=== PATIENT | female | born 1975 | race Caucasian/White ===

== ENCOUNTER 2018-06-30 16:35 | Inpatient (IN) | payer MEDICAID ==
[~2018-06-30] VITALS: Ht 154.9 cm; Wt 60.4 kg
[~2018-06-30 16:35] MED LIST: ALD250 PO; INSN SC; INSR SC; SLOFE PO
[2018-06-30 17:40] LABS: BASOPHIL % 0.5 % (0-2); PLATELET COUNT 297 x10^3mcL (130-400)
[2018-06-30 17:46] LABS: RED CELL DISTRIBUTION WIDTH 14.6 % (11.5-14.5)
[2018-06-30 18:05] LABS: ALKALINE PHOSPHATASE 122 U/L (46-116); ALT/SGPT 33 U/L (14-59); AMYLASE 83 U/L (25-115); AST/SGOT 29 U/L (15-37); BILIRUBIN TOTAL 0.1 mg/dL (0.20-1.00); CALCIUM 8.4 mg/dL (8.5-10.1); CARBON DIOXIDE 27.4 mmol/L (21-32); CHLORIDE SERUM 94 mmol/L (98-107); CHOLESTEROL 140 mg/dL (<200); CREATININE SERUM 0.8 mg/dL (0.6-1.0); GFR1 > 60 mL/min; LIPASE 692 IU/L (73-393); POTASSIUM SERUM 4.1 mmol/L (3.5-5.1); SODIUM SERUM 127 mmol/L (136-145); T4(THYROXINE) 6.2 ug/dL (4.7-13.3); TOTAL PROTEIN, SERUM 6.9 g/dL (6.4-8.2)
[2018-06-30 18:07] LABS: ALBUMIN 2.7 g/dL (3.4-5.0); HDL CHOLESTEROL 31 mg/dL (40-60)
[2018-06-30 18:09] LABS: GLUCOSE SERUM 618 mg/dL (74-106)
[2018-06-30 18:26] LABS: UA SPECIFIC GRAVITY <=1.005 (1.005-1.035); microscopic required? YES; urine erythrocyte TRACE (NEGATIVE)
[2018-06-30 18:35] LABS: AMPHETAMINE QUAL UR NONE DETECTED (See below)
[2018-06-30 20:34] LABS: PHOSPHOROUS 3.8 mg/dL (2.5-4.9)
[2018-06-30 20:37] VITALS: BP 121/76
[2018-06-30 20:40] LABS: CHOLESTEROL/HDL RATIO 4.3
[2018-06-30 20:41] VITALS: Ht 154.9 cm; Wt 60.4 kg
[2018-06-30] MEDS ORDERED: METFORMIN HCL1000 MG PO (21:50)
[2018-06-30] MEDS ORDERED: ZESTRIL20 MG PO (21:50)
[2018-07-01 05:37] VITALS: BP 107/69
[2018-07-01 06:02] LABS: BASOPHIL % 0.6 % (0-2); PLATELET COUNT 286 x10^3mcL (130-400)
[2018-07-01 06:24] LABS: CALCIUM 7.6 mg/dL (8.5-10.1); CARBON DIOXIDE 25.1 mmol/L (21-32); CHLORIDE SERUM 108 mmol/L (98-107); CREATININE SERUM 0.5 mg/dL (0.6-1.0); GFR1 > 60 mL/min; GLUCOSE SERUM 219 mg/dL (74-106); LIPASE 242 IU/L (73-393); POTASSIUM SERUM 4.1 mmol/L (3.5-5.1); SODIUM SERUM 140 mmol/L (136-145)
[2018-07-01 07:27] VITALS: BP 112/72
[2018-07-01 07:28] LABS: RED CELL DISTRIBUTION WIDTH 14.6 % (11.5-14.5)
[2018-07-01 12:16] VITALS: BP 112/73
[2018-07-01 15:00] VITALS: BP 173/74
[2018-07-01 16:28] VITALS: BP 95/65
[2018-07-01 20:39] VITALS: BP 103/60
[2018-07-02 05:47] VITALS: BP 108/72
[2018-07-02 09:35] VITALS: BP 105/68
[2018-07-02 12:58] VITALS: BP 122/81
[2018-07-02] MEDS ORDERED: LEVEMIR100 U/M1 SC (13:18)
[2018-07-02] MEDS ORDERED: HUMULIN R100 U/1 M1 SC (13:19)
[2018-07-02 14:47] VITALS: BP 122/81
[2018-07-02 17:31] VITALS: BP 115/83
== END 2018-07-02 18:55 | disposition home or self-care (01) | DRG 282 ==
LOC: ED 16:35 → MU 19:11 → DU 19:11 → MU 20:21 → DU 22:26
PROVIDERS: Emergency Medicine; ADMIT Internal Medicine
DX: K85.20 Alcohol induced acute pancreatitis without necrosis or infection (principal); E11.00 Type 2 diabetes mellitus with hyperosmolarity without nonketotic hyperglycemic-hyperosmolar coma (NKHHC); E43 Unspecified severe protein-calorie malnutrition; K76.0 Fatty (change of) liver, not elsewhere classified; E86.0 Dehydration; E11.65 Type 2 diabetes mellitus with hyperglycemia; E87.1 Hypo-osmolality and hyponatremia; I10 Essential (primary) hypertension; E78.5 Hyperlipidemia, unspecified; F10.188 Alcohol abuse with other alcohol-induced disorder; F41.0 Panic disorder [episodic paroxysmal anxiety]; Z79.4 Long term (current) use of insulin; Z79.84 Long term (current) use of oral hypoglycemic drugs; Z91.14 Patient's other noncompliance with medication regimen
CPT/HCPCS: 36600; 82962; 83880; 90658; 90732; C9113; G0480; J1815; J7030; Q0092

== ENCOUNTER 2019-01-26 18:44 | Emergency (ER) | payer MEDICAID ==
[~2019-01-26] VITALS: Ht 157.5 cm; Wt 54.9 kg
[~2019-01-26 18:44] MED LIST changes: +HUMULIN R100 U/1 M1 SC; +LEVEMIR100 U/M1 SC; +METFORMIN HCL1000 MG PO; +ZESTRIL20 MG PO
[2019-01-26 19:05] VITALS: Ht 157.5 cm; Wt 54.9 kg
[2019-01-26 21:24] VITALS: BP 129/80
== END 2019-01-26 21:24 | disposition home or self-care (01) ==
LOC: ED 18:44
DX: L02.412 Cutaneous abscess of left axilla (principal); I10 Essential (primary) hypertension; E11.9 Type 2 diabetes mellitus without complications; F41.9 Anxiety disorder, unspecified; Z86.2 Personal history of diseases of the blood and blood-forming organs and certain disorders involving the immune mechanism
CPT/HCPCS: J2001; J7030; J7060; Q0162

== ENCOUNTER 2019-01-31 18:53 | Emergency (ER) | payer MEDICAID ==
[~2019-01-31] VITALS: Ht 152.4 cm; Wt 55.5 kg
[2019-01-31 20:05] VITALS: Ht 152.4 cm; Wt 55.5 kg
[2019-01-31 22:16] VITALS: BP 129/91
== END 2019-01-31 22:16 | disposition home or self-care (01) ==
LOC: ED 18:53
DX: L02.414 Cutaneous abscess of left upper limb (principal); I10 Essential (primary) hypertension; E11.9 Type 2 diabetes mellitus without complications; F41.9 Anxiety disorder, unspecified; Z86.2 Personal history of diseases of the blood and blood-forming organs and certain disorders involving the immune mechanism; Z48.01 Encounter for change or removal of surgical wound dressing